=== PATIENT | male | born 1975 | race Caucasian/White ===

== ENCOUNTER 2016-10-26 05:09 | Day surgery (SDC) | payer BC ==
[~2016-10-26 05:09] MED LIST: ALLEGRA-D 24 H1 EACH PO
[2016-10-27] MEDS ORDERED: NORCO 5-325 TA1 EACH PO (14:22)
[2016-10-27] MEDS ORDERED: SYNTHROID175 MC1 PO (14:22)
[2016-10-27] MEDS ORDERED: CALCIUM CARBON500 M2 PO (14:23)
[2016-10-27] MEDS ORDERED: ROCALTROL0.25 MC1 PO (14:25)
== END 2016-10-27 15:35 ==
LOC: SRG 05:09 → SHSA 05:13 → ORE 07:13 → PACU 09:58 → 5WE 11:15
PROC: 0GTK0ZZ Resection of Thyroid Gland, Open Approach (ICD-10-PCS; principal; 2016-10-26)
DX: C73 Malignant neoplasm of thyroid gland (principal); E06.3 Autoimmune thyroiditis; G47.30 Sleep apnea, unspecified; F10.10 Alcohol abuse, uncomplicated; M10.9 Gout, unspecified; R00.1 Bradycardia, unspecified; Z86.11 Personal history of tuberculosis
CPT/HCPCS: J0690; J1100; J3010